=== PATIENT | male | born 1995 | race Caucasian/White ===

== ENCOUNTER 2019-02-24 23:22 | Emergency (ER) | payer BC, MEDICAID ==
[2019-02-25] MEDS ORDERED: ACETAMINOPHEN 325 MG TABLET PO ONE ×2 (01:17→02:11)
--- NOTE | 2019-02-25 02:40 | RADIOLOGY REPORT (SQ) ---
EXAM DESCRIPTION: XR FOOT 3 OR MORE VIEWS COMPLETED DATE/TME: 02/25/2019 00:00 CLINICAL HISTORY: 23 years, Male, foot injury COMPARISON: None. NUMBER OF VIEWS: 3 TECHNIQUE: 3 views left foot LIMITATIONS: None. FINDINGS: Nondisplaced fracture of the proximal phalanx of the fifth digit. Associated soft tissue swelling. No dislocation IMPRESSION: Fracture of the fifth digit as above copyright 2010 [employer]- All Rights Reserved
[2019-02-25 03:14] LABS: A TYPE INFLUENZA AG NEGATIVE (NEGATIVE); B INFLUENZA AG NEGATIVE (NEGATIVE)
[2019-02-25] MEDS ORDERED: NORMAL SALINE 1000 ML 1,000 ML IV ONE (05:54)
--- NOTE | 2019-02-25 06:05 | ER Document Report ---
ED General - General Chief Complaint: Foot Injury Stated Complaint: LEFT FOOT INJURY/FEVER Time Seen by Provider: 02/25/19 05:46 Primary Care Provider: COLETTE MOREIRA MD [ACTIVE STAFF] - Follow up as needed Notes: Patient is a 23-year-old male that comes emergency department for two complaints. First complaint is a fever that started over the past day, he also has a occasional congested cough. He denies difficulty breathing, sore throat, headache, abdominal pain, vomiting, flank pain. He states he generally aches everywhere. Second complaint is 2 days ago he accidentally kicked a doorway with his left foot and his toe was angled and very painful, he states he straightened this and taped it but it is still hurting and swollen. He denies any other injuries. He denies any daily medications, he states he was diagnosed with ADHD but denies medical history otherwise. He denies ever using IV drugs, he does smoke but he denies regular alcohol use. He states he has had sick contacts at work. TRAVEL OUTSIDE OF THE [place] IN LAST 30 DAYS: No - Related Data Allergies/Adverse Reactions: No Known Allergies Allergy (Unverified 11/26/11 12:40) Past Medical History - General Information source: Patient - Social History Smoking Status: Current Some Day Smoker Frequency of alcohol use: Social Drug Abuse: None Lives with: Alone Family History: Reviewed & Not Pertinent Patient has suicidal ideation: No Patient has homicidal ideation: No Psychiatric Medical History: Reports: Hx Attention Deficit Hyperactivity Disorder - Immunizations Immunizations up to date: Yes Review of Systems - Review of Systems Constitutional: See HPI EENT: No symptoms reported Cardiovascular: No symptoms reported Respiratory: See HPI Gastrointestinal: No symptoms reported Genitourinary: No symptoms reported Male Genitourinary: No symptoms reported Musculoskeletal: See HPI Skin: No symptoms reported Hematologic/Lymphatic: No symptoms reported Neurological/Psychological: No symptoms reported Physical Exam - Vital signs Vitals: Temp Pulse BP Pulse Ox 102.6 F H 121 H 107/90 H 98 02/25/19 00:27 02/25/19 00:27 02/25/19 00:27 02/25/19 00:27 - Notes Notes: GENERAL: Alert, interacts well. No acute distress. HEAD: Normocephalic, atraumatic. EYES: Pupils equal, round, and reactive to light. Extraocular movements intact. ENT: Oral mucosa moist, tongue midline. Oropharynx unremarkable. Airway patent. Nares patent, no nasal septal hematoma, TM's intact. NECK: Full range of motion. Supple. Trachea midline. No nuchal rigidity. LUNGS: Clear to auscultation bilaterally, no wheezes, rales, or rhonchi. No respiratory distress. Occasional congested cough. HEART: Tachycardia, normal rhythm, no murmur ABDOMEN: Soft, non-tender. Non-distended. Bowel sounds present in all 4 quadrants. GENITOURINARY: Deferred EXTREMITIES: Pain with soft tissue swelling over the left fifth digit without wounds. Normal capillary refill and sensation. Normal foot, toes, ankle, leg exam otherwise. BACK: no cervical, thoracic, lumbar midline tenderness. No saddle anesthesia, normal distal neurovascular exam. Moves all extremities in full range of motion. NEUROLOGICAL: Alert and oriented x3. Normal speech. Cranial nerves II through XII grossly intact. PSYCH: Normal affect, normal mood. SKIN: Flushed, hot Course - Re-evaluation Re-evalutation: X-ray showing fracture of the left fifth digit without displacement. Normal examination of the lower extremity otherwise. Jones taped and discussed details, provided with crutches. Patient was febrile, tachycardic, denies chest pain, does have a congested cough occasionally. Chest x-ray negative. CBC unremarkable. Influenza and mono tests are negative. Reevaluate patient. No nuchal rigidity, no abdominal pain, no respiratory symptoms, no current complaints. He has broken his fever. Heart rate is 105. He is asking to go home. I suspect this is viral. Discussed treatment of broken toe, expectations, treatment of suspected viral illness, and strict return precautions. Patient states understanding and agreement. Stable at time of discharge. - Vital Signs Vital signs: Temp Pulse Resp BP Pulse Ox 100.5 F H 122 H 20 140/73 H 100 02/25/19 06:04 02/25/19 06:04 02/25/19 06:04 02/25/19 06:04 02/25/19 06:04 - Laboratory Result Diagrams: 02/25/19 06:10 02/25/19 06:10 Laboratory results interpreted by me: 02/25/19 02/25/19 06:10 06:10 [place] % (Auto) 15.8 H Total Protein 8.8 H Albumin 5.1 H Discharge - Discharge Clinical Impression: Cough Fracture of fifth toe, left, closed Qualifiers: Encounter type: initial encounter Qualified Code(s): S92.502A - Displaced unspecified fracture of left lesser toe(s), initial encounter for closed fracture Fever Qualifiers: Fever type: unspecified Qualified Code(s): R50.9 - Fever, unspecified Condition: Stable Disposition: HOME, SELF-CARE Instructions: Oral Narcotic Medication ([facility]) Additional Instructions: Your work-up including chest x-ray, flu test, and general labs are negative. This appears to be a viral illness causing fevers, this should resolve with time. Drink plenty fluids, rest, take ibuprofen for fever. You did break the fifth toe, I recommend jones taping these together, this does heal with time. You have been provided with crutches to use. Take pain medication only if needed, especially to help you sleep. See additional instructions on this below. Follow-up with primary care. Come back if you worsen including difficulty breathing, stiff neck, severe headache, vomiting, or any other concerning or worsening symptoms. Fractured Toe You have fractured your toe. Although this fracture doesn't need a cast or splint, emergency evaluation was needed to assess the straightness of the bones and joints. Reduction ("setting") is necessary for toe fractures which are crooked or twisted. A toe fracture will heal in about three weeks. Usually, the fractured toe is taped to the next toe. The second toe acts as a moving splint to protect the broken one. Ice and elevation help during the first 48 hours. You may need crutches at first if walking is painful. When you begin walking, be careful NOT to do things that hurt. If weight bearing is not comfortable within a few days, you may require a special shoe, walking boot, or cast. Call the listed orthopedics referral for this. Call the doctor or return at once if severe swelling, severe pain, or numbness develop in the toe, or if you suspect you may have re-injured it. Prescriptions: Hydrocodone/Acetaminophen [S[place]ro [place] 5-325 mg Tablet] 1 - 2 tab PO ASDIR #10 tablet Forms: Return to Work Referrals: COLETTE MOREIRA MD [ACTIVE STAFF] - Follow up as needed
[2019-02-25 06:21] LABS: ABSOLUTE LYMPHOCYTES (AUTO) 1.1 10^3/uL (0.5-4.7); ABSOLUTE MONOCYTES (AUTO) 1.3 10^3/uL (0.1-1.4); ABSOLUTE NEUT (AUTO) 5.7 10^3/uL (1.7-8.2); BASOPHILS % (AUTO) 0.4 % (0-2); EOSINOPHILS % (AUTO) 0.3 % (0-6); HEMATOCRIT 47.5 % (37.9-51.0); HEMOGLOBIN 16.6 g/dL (13.5-17.0); LYMPHOCYTES % (AUTO) 13.1 % (13-45); MEAN CORPUSCULAR HEMOGLOBIN 30.1 pg (27.0-33.4); MEAN CORPUSCULAR HGB CONC 35.1 g/dL (32.0-36.0); MEAN CORPUSCULAR VOLUME 86 fl (80-97); MONOCYTES % (AUTO) 15.8 % (3-13); PLATELET COUNT 173 10^3/uL (150-450); RED BLOOD COUNT 5.53 10^6/uL (4.35-5.55); RED CELL DISTRIBUTION WIDTH 12.9 % (11.5-14.0); SEGMENTED NEUTROPHILS % (AUTO) 70.4 % (42-78); TOTAL CELLS COUNTED % (AUTO) 100 %; WHITE BLOOD COUNT 8.1 10^3/uL (4.0-10.5)
[2019-02-25 06:39] LABS: ALBUMIN 5.1 g/dL (3.5-5.0); ALKALINE PHOSPHATASE 64 U/L (38-126); ANION GAP 17 (5-19); ASPARTATE AMINO TRANSFERASE 42 U/L (17-59); BILIRUBIN,DIRECT 0.2 mg/dL (0.0-0.4); BLOOD UREA NITROGEN 15 mg/dL (7-20); CALCIUM 9.9 mg/dL (8.4-10.2); CARBON DIOXIDE 26 mmol/L (22-30); CHLORIDE 99 mmol/L (98-107); GLUCOSE 103 mg/dL (75-110); POTASSIUM 4.1 mmol/L (3.6-5.0); TOTAL PROTEIN 8.8 g/dL (6.3-8.2)
[2019-02-25] MEDS ORDERED: IBUPROFEN 800 MG TABLET PO ONE (06:57)
--- NOTE | 2019-02-25 07:53 | RADIOLOGY REPORT (SQ) ---
EXAM DESCRIPTION: X-ray two view chest. CLINICAL HISTORY: 23 years Male, cough, fever, tachycardia COMPARISON: None. TECHNIQUE: PA and Lateral views of the chest performed on 02/25/2019 at 7:27 AM FINDINGS: The lungs are well expanded and are clear. The costophrenic sulci are clear. There is no evidence of a pneumothorax. The cardiac silhouette is normal in size. The mediastinal contours are normal. No acute osseous abnormalities are identified. No focal soft tissue abnormalities are identified. IMPRESSION: No evidence of acute intrathoracic disease.
[2019-02-25] MEDS ORDERED: HYDROCODONE/ACETAMINOPHEN 5-325 MG (6 TAB/ER DISP) PO PRN (08:07)
[2019-02-25 08:39] VITALS: BP 111/43
== END 2019-02-25 08:40 | disposition home or self-care (01) ==
LOC: ER 23:22
DX: S92.502A Displaced unspecified fracture of left lesser toe(s), initial encounter for closed fracture (principal); W22.09XA Striking against other stationary object, initial encounter; R50.9 Fever, unspecified; R05 Cough; F17.200 Nicotine dependence, unspecified, uncomplicated; R00.0 Tachycardia, unspecified
CPT/HCPCS: 99283; 96360; 36415; 85025; 86308; 80053; 87804; 71046; 73630; J7030